=== PATIENT | male | born 1975 | race Caucasian/White ===

== ENCOUNTER 2016-09-05 17:10 | Emergency (ER) | payer MEDICAID ==
[~2016-09-05] VITALS: Ht 182.9 cm; Wt 102.1 kg
[~2016-09-05 17:10] MED LIST: BACTRIM DS 8001 TAB PO; BUPRENORPHINE H1 TA2 SL; FLEXERIL10 MG PO; IBU-8800 MG PO; LORTAB 5/500 501 TAB PO; MEDROL 4MG. DOSE4 MG PO; PANTOPRAZOLE SO40 M1 PO; PANTOPRAZOLE SO40 MG PO; PENICILLIN-VK500 MG PO; PERCOCET1 TAB PO; SUBOXONE 8 MG-21 TAB SL; ULTRAM50 MG PO
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
[2016-09-05 19:03] VITALS: BP 130/80
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
== END 2016-09-05 19:04 | disposition home or self-care (01) ==
LOC: ER 17:10
DX: S09.90XA Unspecified injury of head, initial encounter (principal); S16.1XXA Strain of muscle, fascia and tendon at neck level, initial encounter; S06.0X0A Concussion without loss of consciousness, initial encounter; S60.221A Contusion of right hand, initial encounter; K21.9 Gastro-esophageal reflux disease without esophagitis; F41.8 Other specified anxiety disorders; Z72.0 Tobacco use; Y04.2XXA Assault by strike against or bumped into by another person, initial encounter; Y92.89 Other specified places as the place of occurrence of the external cause